=== PATIENT | female | born 1975 | race Caucasian/White ===

== ENCOUNTER 2017-02-05 15:40 | Outpatient (CLI) | payer OTHER ==
--- NOTE | 2017-02-05 21:08 | Diagnostic Imaging Report ---
SOCO ANTON [facility] [address] [facility] [address] [id number] Report Submission Date: February 05, 2017 4:08:00 PM CDT Patient Study Name: TYRA [employer] Date: February 05, 2017 3:50:49 PM CDT Modality Type: CR Gender: F Description: SHOULDER : 79 Institution: [facility] Physician: SOCO ANTON 3 views of the right shoulder History: RT SHOULDER, PAIN AFTER LIFTING INJURY ABOUT 2 WEEKS AGO No comparison studies There is no evidence of acute fracture or dislocation right shoulder. Acromioclavicular and glenohumeral alignment is preserved. Impression: No evidence of acute fracture or dislocation of the right shoulder Electronically signed on February 05, 2017 4:08:00 PM CDT by: Saray MARS
== END 2017-02-05 15:42 ==
LOC: RAD 15:40
PROVIDERS: ATTEND Physician Assistant
DX: S49.91XA Unspecified injury of right shoulder and upper arm, initial encounter (principal); X50.9XXA Other and unspecified overexertion or strenuous movements or postures, initial encounter; Y93.9 Activity, unspecified; Y92.9 Unspecified place or not applicable; Y99.9 Unspecified external cause status
CPT/HCPCS: 73030

== ENCOUNTER 2018-11-26 08:11 | Outpatient (CLI) | payer OTHER ==
[2018-11-26 08:37] LABS: BASOPHILS % 0.8 (0.0-1.5); EOSINOPHILS % 6.4 % (0.0-6.8); MEAN CORPUSCULAR HEMOGLOBIN 30.1 pg (28.0-34.0); MONOCYTES % 5.2 % (0.0-11.0); NEUTROPHILS # 3.6 # k/uL (1.4-7.7)
[2018-11-26 09:01] LABS: eGFR (Non-African) > 60
== END 2018-11-26 08:13 ==
LOC: LAB 08:11
PROVIDERS: ATTEND Obstetrics & Gynecology
DX: Z00.00 Encounter for general adult medical examination without abnormal findings (principal)
CPT/HCPCS: 36415; 80053; 80061; 84439; 84443; 85025